=== PATIENT | male | born 1965 | race Caucasian/White ===

== ENCOUNTER → 2020-02-22 | Outpatient (CLI) | payer BC ==
[~2020-02-22] MED LIST: DULA0.75 SQ; INSU100I13 SQ; LISI10TA2 PO; MELO15TA23 PO; OMEP40CA45 PO; PREG300C PO; SITA1TAB7 PO
== END | disposition home or self-care (01) ==
LOC: LAB 14:00
PROVIDERS: ATTEND Registered Nurse
DX: Z01.812 Encounter for preprocedural laboratory examination (principal); Z20.828 Contact with and (suspected) exposure to other viral communicable diseases
CPT/HCPCS: U0003-CS

== ENCOUNTER → 2020-02-27 | Day surgery (SDC) | payer BC ==
[~2020-02-27] MED LIST changes: +IPRATRPIUM/ALBUTEROL 0.5/2.5MG 3 ML NEBU. NEB PRN; +IV RINGERS SOLUTION,LACTATED 1,000 ML IV SCH; +MIDAZOLAM HCL PF 2 MG/2 ML VIAL. IV ONE; +ONDANSETRON PF 4 MG/2 ML VIAL. IV PRN; +PROPOFOL 10,000 MCG/ML (20ML) VIAL IV ONE
[2020-02-27 10:28] VITALS: BP 130/86
--- NOTE | 2020-02-29 14:07 | PATHOLOGY ---
[facility] Accession Number: [id number] . 01 Material submitted: . PART A: stomach - GASTRIC BX PART B: esophagus - DISTAL ESOPHAGUS. Modifiers: distal PART C: colon - ASCENDING COLON. Modifiers: ascending . 01 Clinical history: . A. R/O H PYLORI B. R/O REFLUX . 02 Diagnosis: A. Gastric biopsies: - Chronic gastritis, mild. . B. Esophageal biopsy, distal esophagus: - Segments of hyperplastic squamous esophageal mucosa. . C. Colon biopsy, ascending colon polyp: - Sessile serrated polyp/adenoma. [facility] 02/29/2020 1052 Local . 02 Comment: Sections of the gastric biopsy reveal segments of gastric antral mucosa showing congestion and mild chronic inflammation. A properly controlled immunoperoxidase stain for Helicobacter is negative for Helicobacter organisms. . Sections of the distal esophageal biopsy reveal segments of tangentially oriented, hyperplastic squamous esophageal mucosa consistent with reflux esophagitis. There is no evidence of Crawford's change, dysplasia, or malignancy. . Sections of the ascending colon biopsy reveal a sessile serrated polyp/adenoma. There is no high-grade dysplasia or evidence of malignancy. ([facility] 02/29/2020) . Special stain performed: Immunoperoxidase stain for Helicobacter on A1. . . 02 Electronically signed: . Cleve Diallo MD, Pathologist NPI- [id number] . 01 Gross description: . A. The specimen is received in formalin, labeled "Cleve De Leon, gastric biopsy, R/O H. pylori". Received are two segments of pale thomson soft tissue ranging in size from 0.3 to 0.5 cm in maximum dimensions. The specimen is submitted entirely in cassette A1. . B. The specimen is received in formalin, labeled "Cleve De Leon, distal esophagus, R/O reflux". Received are two segments of pale thomson soft tissue ranging in size from 0.3 to 0.4 cm in maximum dimensions. The specimen is submitted entirely in cassette B1. . C. The specimen is received in formalin, labeled "Cleve De Leon, ascending colon polyp". Received is a segment of light thomson soft tissue measuring 1.2 x 0.5 x 0.4 cm in greatest dimensions. The surgical margin is inked and the segment is bisected. The specimen is submitted entirely in cassette C1. ([facility]; 02/28/2020) [facility] 02/28/2020 1118 Local . 02 Pathologist provided ICD-10: K29.50, D12.2 . 02 CPT . 951566, 372831, 159131, [id number] Specimen Comment: A courtesy copy of this report has been sent to [phone] Specimen Comment: [phone] Specimen Comment: Report sent to / DR CEDILLO Performed at: 01 [facility] [address] [facility] [address], [place] [id number] MD Dandre Ojeda MD Phone: [phone] Performed at: 02 [facility] [address] [place], [place] [id number] MD Cleve Diallo MD Phone: [phone]
== END | disposition home or self-care (01) ==
LOC: SURG 08:59
PROVIDERS: ATTEND Emergency Medicine
DX: Z12.11 Encounter for screening for malignant neoplasm of colon (principal); K63.5 Polyp of colon; K57.30 Diverticulosis of large intestine without perforation or abscess without bleeding; K31.89 Other diseases of stomach and duodenum; K64.8 Other hemorrhoids; K63.89 Other specified diseases of intestine; K29.50 Unspecified chronic gastritis without bleeding; K21.9 Gastro-esophageal reflux disease without esophagitis; I10 Essential (primary) hypertension; F17.210 Nicotine dependence, cigarettes, uncomplicated; E11.40 Type 2 diabetes mellitus with diabetic neuropathy, unspecified; Z80.0 Family history of malignant neoplasm of digestive organs; Z79.899 Other long term (current) drug therapy
CPT/HCPCS: 43239; 45385; 82947; J2704; J7120

== ENCOUNTER → 2020-03-26 | Outpatient (CLI) | payer BC ==
[2020-02-27 10:28] VITALS: BP 130/86
[~2020-03-26] MED LIST changes: -IPRATRPIUM/ALBUTEROL 0.5/2.5MG 3 ML NEBU. NEB PRN; -IV RINGERS SOLUTION,LACTATED 1,000 ML IV SCH; -MIDAZOLAM HCL PF 2 MG/2 ML VIAL. IV ONE; -ONDANSETRON PF 4 MG/2 ML VIAL. IV PRN; -PROPOFOL 10,000 MCG/ML (20ML) VIAL IV ONE
--- NOTE | 2020-03-26 11:59 | RAD ---
EXAM: Chest, 2 views. HISTORY: Arthroplasty. COMPARISON: None. FINDINGS: 2 views of the chest are obtained. There is no infiltrate, pleural effusion or pneumothorax. The heart is normal in size. IMPRESSION: No acute pulmonary finding. Electronically signed by: Dominga Mcdonnell MD (03/26/2020 11:56 AM) [id number]
--- NOTE | 2020-03-26 15:34 | EKG ---
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
== END ==
LOC: DXRAD 11:19
PROVIDERS: ATTEND Orthopaedic Surgery Sports Medicine
DX: Z01.818 Encounter for other preprocedural examination (principal); M25.40 Effusion, unspecified joint; Z96.653 Presence of artificial knee joint, bilateral
CPT/HCPCS: 71046; 93005